=== PATIENT | female | born 1985 | race American Indian/Alaskan Native ===

== ENCOUNTER 2018-07-23 02:14 | Emergency (ER) | payer SELFPAY ==
[2018-07-23 02:14] VITALS: BMI 26.4
[2018-07-23 02:51] VITALS: RESP 16; O2SAT 98
--- NOTE | 2018-07-23 05:03 | ED PDOC ---
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 Patient states she developed anxiety after having some personal issue with somebody. She did not want to discuss this further with the provider. Patient states she felt chest tightness but symptoms have resolved since and she is now feeling better. She has no fever, cough, nausea, vomiting, diarrhea or diaphoresis. PMD: Miley Saldivar Past Medical History Reviewed: Historical Data, Nursing Documentation, Vital Signs Vital Signs: Last Vital Signs Temp 97.5 F L 07/23/18 02:27 Pulse 77 07/23/18 02:27 Resp 16 07/23/18 02:27 BP 122/68 07/23/18 02:27 Pulse Ox 98 07/23/18 02:27 - Medical History PMH: No Chronic Diseases Denies: HIV, HTN, Chronic Kidney Disease, Seizures, Sexually Transmitted Disease - Surgical History Surgical History: No Surg Hx - Family History Family History: States: Unknown Family Hx - Social History Current smoker - smoking cessation education provided: Yes - Immunization History Hx Tetanus Toxoid Vaccination: No Hx Influenza Vaccination: No Hx Pneumococcal Vaccination: No - Home Medications Home Medications: Ambulatory Orders Medication Instructions Recorded Control 1 tab PO DAILY 09/29/16 Amoxicillin 875 mg PO BID #20 tablet 06/12/17 Ibuprofen 200 mg PO 06/12/17 Ibuprofen [Motrin] 600 mg PO Q6 PRN #20 tab 06/12/17 Mag&Al/Simet/Diphen/Lido [First 5 ml MM Q6 #1 kit 06/12/17 Magic Mouthwash] Mucinex 06/12/17 Bacitracin OINT 1 applic TOP BID #1 tube 03/14/18 Cephalexin [cephalexin] 500 mg PO Q6 #28 cap 03/14/18 - Allergies Allergies/Adverse Reactions: Allergies Allergy/AdvReac Type Severity Reaction Status Date / Time pollen Allergy Uncoded 11/13/17 15:10 Review of Systems ROS Statement: Except As Marked, All Systems Reviewed And Found Negative Constitutional: Negative for: Fever, Sweats Cardiovascular: Positive for: Chest Pain Respiratory: Negative for: Cough Gastrointestinal: Negative for: Nausea, Vomiting, Diarrhea Psych: Positive for: Anxiety Physical Exam - Reviewed Nursing Documentation Reviewed: Yes Vital Signs Reviewed: Yes - Physical Exam Appears: Positive for: Non-toxic, No Acute Distress Head Exam: Positive for: ATRAUMATIC, NORMOCEPHALIC Skin: Positive for: Normal Color, Warm, Dry Eye Exam: Positive for: Normal appearance, EOMI, PERRL ENT: Positive for: Normal ENT Inspection Neck: Positive for: Normal, Painless ROM, Supple Cardiovascular/Chest: Positive for: Regular Rate, Rhythm. Negative for: Murmur Respiratory: Positive for: Normal Breath Sounds. Negative for: Respiratory Distress Gastrointestinal/Abdominal: Positive for: Normal Exam, Soft. Negative for: Tenderness Back: Positive for: Normal Inspection. Negative for: L CVA Tenderness, R CVA Tenderness, Vertebral Tenderness Extremity: Positive for: Normal ROM. Negative for: Pedal Edema, Deformity Neurological/Psych: Positive for: Awake, Alert, Oriented - ECG O2 Sat by Pulse Oximetry: 98 (RA) Pulse Ox Interpretation: Normal Medical Decision Making Medical Decision Making: Time: 331 Impression: 33 year old female presenting with acute anxiety. Plan: --Tylenol 975 mg PO Time: 349 --Patient is stable for discharge. Scribe Attestation: Documented by Kane Walton, acting as a scribe Juana Milton MD. Provider Scribe Attestation: All medical record entries made by the Scribe were at my direction and personally dictated by me. I have reviewed the chart and agree that the record accurately reflects my personal performance of the history, physical exam, medical decision making, and the department course for this patient. I have also personally directed, reviewed, and agree with the discharge instructions and disposition. Disposition - Clinical Impression Clinical Impression: Anxiety - Disposition Referrals: Miley Saldivar MD [Primary Care Provider] - Disposition: Routine/Home Disposition Time: 03:50 Condition: STABLE Instructions: Anxiety, Adult (DC) Forms: [email or web address] (Greek)
[2018-07-23 06:15] VITALS: BP 118/70; PULSE 76; TEMP 98.2
== END 2018-07-23 04:43 | disposition home or self-care (01) ==
LOC: H.ER 02:14
DX: F41.9 Anxiety disorder, unspecified (principal)

== ENCOUNTER 2018-08-14 23:16 | Emergency (ER) | payer SELFPAY ==
[2018-08-14 23:16] VITALS: BMI 26.4
[2018-08-14 23:58] VITALS: BP 122/87; PULSE 98; RESP 17; TEMP 97.9; O2SAT 100
--- NOTE | 2018-08-15 02:26 | ED PDOC ---
HPI: CCC, URI, Sore Throat Time Seen by Provider: 08/14/18 23:47 Chief Complaint (Nursing): Dizziness/Lightheaded Chief Complaint (Provider): Dizziness/Lightheaded History Per: Patient History/Exam Limitations: no limitations Onset/Duration Of Symptoms: Days (x 1) Current Symptoms Are (Timing): Still Present Associated Symptoms: Sinus Drainage, Nasal Congestion Ear Symptoms: Bilateral: None Additional Complaint(s): 33 year old female with a history of Mukherjee's syndrome presents to the ED for evaluation of sneezing, nasal congestion and runny nose for one day. Patient reports chest discomfort and some dizziness when she sneezes. Denies fever, shortness of breath and other symptoms. PMD: none provided Past Medical History Reviewed: Historical Data, Nursing Documentation, Vital Signs Vital Signs: Last Vital Signs Temp 97.9 F 08/14/18 23:54 Pulse 98 H 08/14/18 23:54 Resp 17 08/14/18 23:54 BP 122/87 08/14/18 23:54 Pulse Ox 100 08/14/18 23:54 Primary Care Provider: FAMILY PROVIDER,NO - Medical History PMH: Denies: HIV, HTN, Chronic Kidney Disease, Seizures, Sexually Transmitted Disease Other PMH: Mukherjee's syndrome - Surgical History Surgical History: No Surg Hx - Family History Family History: States: Unknown Family Hx - Immunization History Hx Tetanus Toxoid Vaccination: No Hx Influenza Vaccination: No Hx Pneumococcal Vaccination: No - Home Medications Home Medications: Ambulatory Orders Medication Instructions Recorded Control 1 tab PO DAILY 09/29/16 Amoxicillin 875 mg PO BID #20 tablet 06/12/17 Ibuprofen 200 mg PO 06/12/17 Ibuprofen [Motrin] 600 mg PO Q6 PRN #20 tab 06/12/17 Mag&Al/Simet/Diphen/Lido [First 5 ml MM Q6 #1 kit 06/12/17 Magic Mouthwash] Mucinex 06/12/17 Bacitracin OINT 1 applic TOP BID #1 tube 03/14/18 Cephalexin [cephalexin] 500 mg PO Q6 #28 cap 03/14/18 - Allergies Allergies/Adverse Reactions: Allergies Allergy/AdvReac Type Severity Reaction Status Date / Time pollen Allergy Uncoded 11/13/17 15:10 Review of Systems ROS Statement: Except As Marked, All Systems Reviewed And Found Negative Constitutional: Negative for: Fever, Chills ENT: Positive for: Nose Discharge, Nose Congestion, Other (sneezing) Cardiovascular: Positive for: Chest Pain (discomfort when sneezing) Respiratory: Negative for: Shortness of Breath Physical Exam - Reviewed Nursing Documentation Reviewed: Yes Vital Signs Reviewed: Yes - Physical Exam Appears: Positive for: Non-toxic, No Acute Distress Head Exam: Positive for: ATRAUMATIC, NORMAL INSPECTION, NORMOCEPHALIC Skin: Positive for: Normal Color, Warm, Dry Eye Exam: Positive for: EOMI, Normal appearance, PERRL Neck: Positive for: Normal, Painless ROM, Supple Cardiovascular/Chest: Positive for: Regular Rate, Rhythm. Negative for: Murmur Respiratory: Positive for: Normal Breath Sounds. Negative for: Respiratory Distress Gastrointestinal/Abdominal: Positive for: Normal Exam, Soft. Negative for: Tenderness Back: Positive for: Normal Inspection. Negative for: L CVA Tenderness, R CVA Tenderness Extremity: Positive for: Normal ROM. Negative for: Deformity Neurological/Psych: Positive for: Awake, Alert, Normal Tone, Oriented (x 3). Negative for: Motor/Sensory Deficits - ECG O2 Sat by Pulse Oximetry: 100 (RA) Pulse Ox Interpretation: Normal Medical Decision Making Medical Decision Makin:27 Impression: DANICAI Advised patient about supportive care Patient with stable vitals. She is suitable for outpatient follow up. Scribe Attestation: Documented by Darlene Jones, acting as a scribe Chelsea Herring MD Provider Scribe Attestation: All medical record entries made by the Scribe were at my direction and personally dictated by me. I have reviewed the chart and agree that the record accurately reflects my personal performance of the history, physical exam, medical decision making, and the department course for this patient. I have also personally directed, reviewed, and agree with the discharge instructions and disposition. Disposition - Clinical Impression Clinical Impression: Upper respiratory infection - Patient ED Disposition Is Patient to be Admitted: No - Disposition Referrals: [facility] [Outside] Disposition: Routine/Home Disposition Time: 00:45 Condition: GOOD Instructions: Viral Upper Respiratory Infection, Adult (DC) Forms: TDX (Slovenian)
== END 2018-08-15 00:54 | disposition short-term general hospital (02) ==
LOC: H.ER 23:16
DX: J06.9 Acute upper respiratory infection, unspecified (principal)